=== PATIENT | female | born 2000 | race African-American/Black ===

== ENCOUNTER 2023-08-06 13:14 | Emergency (ER) | payer OTHER, SELFPAY ==
[2023-08-06] VITALS (14 sets, daily range): BP systolic 136–173; BP diastolic 67–89; PULSE 82–117; RESP 17–24; TEMP 36.4; O2SAT 94–100
--- NOTE | 2023-08-06 14:05 | ED.FEMALEGU ---
HPI - Female Genitourinary General Chief complaint: Vaginal Bleeding Stated complaint: Vaginal Bleeding Time Seen by Provider: 08/06/23 13:46 Source: patient Mode of arrival: ambulatory Limitations: no limitations History of Present Illness HPI Narrative: Nicole is a male patient presenting to the ER today with complaints of vaginal bleeding. She reports her last menstrual period was June 12, 2023. States she has taken 4 bedside test and they have all been positive. She started having some abdominal cramping and bleeding yesterday. Has not seen OBGYN. Rates abdominal cramping 5 a 10 currently but states it was worse yesterday. No previous pregnancies in the past. Related Data Allergies Allergy/AdvReac Type Severity Reaction Status Date / Time No Known Allergies Allergy Verified 08/06/23 14:48 Review of Systems Review of Systems: Pertinent positives per HPI. Patient denies any fever, chills, rash, headache, visual changes, dizziness, cough, runny nose, sore throat, shortness of breath, chest pain, palpitations, nausea, vomiting, diarrhea, constipation, any urinary issues. PMFSH Comments At the time of my signature, I reviewed and agree with the nursing past medical, surgical, social, and family history. There is no relevant family history pertinent to the patient complaint. Exam Narrative: General: Well-developed, obese, in no apparent distress Head: Normocephalic, atraumatic. Cardio: Regular rate and rhythm, s1 and s2 normal, no murmur appreciated. Resp: Clear to auscultation bilaterally, no rhonchi, rales, wheezing or rubs. Abdomen: Soft, pliable, bowel sounds present in all quadrants, non-tender to palpation, no CVAT tenderness. : Deferred Course Course Emergency Course: Portions of this record may have been created with voice recognition software. Vital Signs Vital signs: Vital Signs Temperature 36.4 C 08/06/23 13:18 Pulse Rate 102 H 08/06/23 13:18 Respiratory Rate 18 08/06/23 13:18 Blood Pressure 144/76 H 08/06/23 13:18 Pulse Oximetry 100 08/06/23 13:18 Oxygen Delivery Room Air 08/06/23 13:18 Temperature 36.4 C 08/06/23 13:18 Pulse Rate 89 08/06/23 15:46 Respiratory Rate 23 H 08/06/23 15:46 Blood Pressure 173/78 H 08/06/23 15:46 Pulse Oximetry 100 08/06/23 15:46 Oxygen Delivery Room Air 08/06/23 13:18 Vital signs reviewed MDM - Female Genitourinary MDM Narrative Medical decision making narrative: At the time of visit patient is resting comfortably on the exam table. Patient appears to be nontoxic. Labs: CBC shows white blood cell count of 10.7, H&H 12.4 in 39.4, platelet counts 372, anti coagulation studies within normal limits, CMP is unremarkable, urinalysis shows turbid urine with 1+ protein 3+ blood 1+ leukocyte, greater than 100 red blood cells and 6-10 white blood cells. Likely skewed by menses. Blood bank test within normal limits patient is B-positive with a negative antibody screen. Bedside test was negative, beta-hCG is negative with results less than 2.39 Plan: I suspect patient has had an vaginal bleed-dysfunctional uterine bleeding. Bedside test was negative and beta hCG is negative for in the ER today. We will go ahead and treat urine with Macrobid and sent for culture. Supportive measures were discussed with the patient and they voiced understanding discharge instructions and agrees to treatment plan. Return precautions reviewed Differential Diagnosis Differential diagnosis: Likely urinary tract infection and other (Cystitis, threatened , vaginal bleeding) Lab Data 08/06/23 14:40 08/06/23 14:40 Labs: Lab Results 08/06/23 Range/Units 14:40 WBC 10.7 H (4.5-10.0) K/mm3 RBC 4.43 (4.2-5.4) M/mm3 Hgb 12.4 (12.0-15.0) g/dL Hct 39.4 (37.0-47.0) % MCV 88.9 (80-100) fl MCH 28.0 (26-34) pg MCHC 31.5 L (32-36) g/dl RDW 13.2
[2023-08-06 14:55] LABS: Basophils Percent Auto 0.4 % (0.2-1.2); Eosinophils Absolute Auto 0.1 K/mm3 (0-0.3); Hematocrit 39.4 % (37.0-47.0); Hemoglobin 12.4 g/dL (12.0-15.0); Immature Granulocyte Absolute 0.04 K/mm3 (0.00-0.031); Immature Granulocyte Percent A 0.4 % (0-0.5); Lymphocytes Absolute Auto 3.35 K/mm3 (0.9-3.2); Lymphocytes Percent Auto 31.4 % (18.3-44.2); Mean Corpuscular HGB Conc 31.5 g/dl (32-36); Mean Corpuscular Volume 88.9 fl (80-100); Mean Platelet Volume 8.6 fl (7.4-10.4); Monocytes Absolute Auto 0.5 K/mm3 (0.1-0.6); Monocytes Percent Auto 4.3 % (2.6-8.5); Neutrophils Absolute Auto 6.7 K/mm3 (1.3-6.7); Neutrophils Percent Auto 62.5 % (45.5-73.1); Platelet Count Result 372 k/mm3 (150-375); Red Blood Count 4.43 M/mm3 (4.2-5.4); Red Cell Distribution Width 13.2 % (11.5-14.5); White Blood Count 10.7 K/mm3 (4.5-10.0)
[2023-08-06 15:07] LABS: Alanine Aminotransferase 24 U/L (6-35); Albumin Level 4.5 g/dL (3.5-5.1); Alkaline Phosphatase 64 U/L (38-126); Anion Gap 9 mmol/L (4-12); Aspartate Amino Transferase 24 U/L (14-36); Bilirubin,Total 0.4 mg/dL (0.2-1.3); Blood Urea Nitrogen 9 mg/dL (7-17); Calcium 9.4 mg/dL (8.4-10.2); Carbon Dioxide 26 mmol/L (22-30); Chloride 104 mmol/L (98-107); Estimated CRCL calculation 133 ml/min; Estimated Glomerular Filt Rate > 60; Glucose 84 mg/dL (65-110); Sodium 139 mmol/L (137-145)
[2023-08-06 15:10] LABS: Bacteria Urine None Seen /hpf; Need Manual Microscopic Reviewed; Non Pathogenic Casts 0-2; RBC Urine >100 /hpf (0-2); Squamous Epithelial Cell Urine Few /hpf (Few)
[2023-08-06 15:11] LABS: INR 1.1; Prothrombin Time 14.3 Seconds (11.1-14.7)
[2023-08-06 15:13] LABS: Appearance Urine Turbid (Clear); Bilirubin Urine Negative (Negative); Blood Urine 3+ (Negative); Color Urine Dark Yellow (Yellow); Glucose Urine UA Negative (Negative); Ketones Urine Negative (Negative); Leukocyte Esterase Ur 1+ LEU/UL (Negative); Nitrate Urine Negative (Negative); Protein Urine 1+ mg/dL (Negative); Specific Grav Ur 1.025 (1.001-1.035); pH Urine 5.5 (5.0-9.0)
[2023-08-06 15:14] LABS: Add Urine Microscopic? YES
[2023-08-06 15:24] LABS: Beta HCG Quantitative < 2.39 mIU/ML
[2023-08-06 15:27] LABS: Partial Thromboplastin Time 35.3 Seconds (22.3-36.8)
== END 2023-08-06 16:22 | disposition home or self-care (01) ==
PROVIDERS: Emergency Provider Nurse Practitioner Family
DX: N30.01 Acute cystitis with hematuria (principal); N93.9 Abnormal uterine and vaginal bleeding, unspecified
CPT/HCPCS: 36415; 80053; 81001; 81025; 84702; 85025; 85461; 85610; 85730; 86850; 86900; 86901; 87086; 87088; 87147; 99284

== ENCOUNTER 2023-10-16 16:34 | Emergency (ER) | payer SELFPAY ==
[2023-10-16 16:35] VITALS: BP 155/100; PULSE 90; RESP 16; TEMP 36.8; O2SAT 97
[2023-10-16 21:05] VITALS: BP 150/88; PULSE 100; RESP 17; TEMP 37.1; O2SAT 100
--- NOTE | 2023-10-17 01:26 | ED.EXTPRO ---
HPI - Extremity Problem General Chief complaint: Extremity Problem,Nontraumatic Stated complaint: FEET ARE SWEELING, BACK PAIN Time Seen by Provider: 10/16/23 21:31 History of Present Illness HPI Narrative: Patient with history of chronic back pain is presenting with back pain, she states occasionally she feels like her legs will go numb due to pain, this has been ongoing for 1-2 years. No urinary difficulties, saddle anesthesia, or weakness. She did notice that her legs seem to be more swollen over the last few days. She was recently treated for urinary tract infection and she has no flank pain or dysuria at this time Related Data Allergies Allergy/AdvReac Type Severity Reaction Status Date / Time No Known Allergies Allergy Verified 10/16/23 21:07 Review of Systems Review of Systems: All systems reviewed & are unremarkable except as noted in HPI and below Exam Narrative: EXAMINATION OF ORGAN SYSTEMS/BODY AREAS: Constitutional: Vital signs per nursing GENERAL:[No acute distress, non-toxic appearing.] HEAD: Normal with no signs of head trauma. EYES: EOMI, conjunctiva normal ENT: Hearing grossly intact LUNGS: Nonlabored breathing. HEART: [Regular rate and rhythm] ABD: [Soft], [nontender to palpation]; no CVA tenderness. EXT: Normal range of motion SKIN: [No rashes or lesions.] NEURO: [Alert and oriented x 3. No gross focal sensory or strength deficits.] No saddle anesthesia. Ambulating with normal steady gait. PSYCH: Normal affect Course Vital Signs Vital signs: Vital Signs Temperature 98.2 F 10/16/23 16:35 Pulse Rate 90 10/16/23 16:35 Respiratory Rate 16 10/16/23 16:35 Blood Pressure 155/100 H 10/16/23 16:35 Pulse Oximetry 97 10/16/23 16:35 Temperature 98.7 F 10/16/23 21:05 Pulse Rate 100 10/16/23 21:05 Respiratory Rate 17 10/16/23 21:05 Blood Pressure 150/88 H 10/16/23 21:05 Pulse Oximetry 100 10/16/23 21:05 MDM - Extremity (Nontraumatic) MDM Narrative Medical decision making narrative: ED COURSE AND MEDICAL DECISION MAKINF with acute on chronic back pain. Normal motor and sensory exam. Patient able to ambulate. No evidence of acute cord compression, osteomyelitis/discitis or cauda equina without saddle anesthesia, urinary retention/incontinence, numbness/tingling in lower extremities, fever, history of IV drug use, cancer or immunosuppression. Doubt AAA or aortic dissection without severe pain/discomfort or any neurovascular deficits. [Ketorolac 15mg IM] given for symptomatic relief. At this time, I do not believe the patient requires imaging studies. Will reevaluate the need for further investigations after the medications. On reevaluation, the symptoms are improved. Patient is able to rest more comfortably. Ambulating without difficulty. She does also have bilateral lower extremity swelling, nonpitting, not unilateral, no skin changes, I did discuss with the patient we should try to keep the legs elevated, potentially also use compression stockings, and we can trial a very short course of Lasix and she is agreeable to this plan. [I discussed management of acute back pain in detail, explaining the need to remain active and the goals of pain control. I will trial course of steroids] Patient is given return precautions and instructed to come back at any point in time for worsening pain, fevers, weakness, difficulty walking, urinary or fecal incontinence. She is given follow-up instructions to primary care doctor as well as to a back surgeon. Patient expressed understanding of instructions. Discharge Plan Discharge Clinical Impression: Lower extremity edema, Back pain Patient Disposition: Home, Self-Care Condition: Stable Instructions: Antibiotic Form, Low Back Strain (ED), Leg Edema (ED) Additional Instructions: Please follow up with a primary care doctor; you can call the numbers below for that. You can also follow up with a back surgeon. You can always ret
== END 2023-10-16 23:00 | disposition home or self-care (01) ==
PROVIDERS: Emergency Provider Emergency Medicine
DX: M54.9 Dorsalgia, unspecified (principal); G89.29 Other chronic pain; R60.0 Localized edema
CPT/HCPCS: 99283